=== PATIENT | female | born 1960 | race Caucasian/White ===

== ENCOUNTER → 2016-07-02 | Outpatient (CLI) | payer MEDICAID ==
[~2016-07-02] MED LIST: CELEXA40 M1 PO; IMODIUM 2MG. CAP2 MG PO; NEURONTIN800 MG PO; VALIUM 10MG TAB10 MG PO
--- NOTE | 2016-07-02 23:33 | RADIOLOGY REPORT PS360 ---
THORACIC SPINE AP LAT-2VIEW Ordering Physician: Jose L Santiago MD Patient Age: 56 years: Female HISTORY: HIP AND BACK PAIN TECHNIQUE: AP lateral swimmer's view thoracic spine. FINDINGS Thoracic vertebral bodies appear intact. No compression fractures of thoracic spine. There is mild dextro scoliosis at the lower thoracic spine. This character Associated with some mild disc space narrowing to the left at at T8/9 & T9-10 . Early marginal osteophytes the left T10 days 10. No paraspinal mass. Posterior ribs intact. Mild/moderate degenerative arthritic changes lower C-spine and cervical spondylosis-. These features and T-spine Similar to [address] with no significant new findings today. Wedge compression fracture superior L1 IMPRESSION: Thoracic spine intact with no fracture nor subluxation of the T-spine. ] We do see the compression fracture at L1, as discussed in subsequent lumbar radiograph report
--- NOTE | 2016-07-03 00:04 | RADIOLOGY REPORT PS360 ---
LUMBAR SPINE 5 VIEWS Ordering Physician: Jose L Santiago MD Patient Age: 56 years: Female HISTORY: HIP AND BACK PAIN TECHNIQUE: Five-view lumbar spine series COMPARISONThere is a February 2015 MRI used as comparison along with a CT chest from September 2015 FINDINGS . 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 Small rudimentary Rib on the left with a a small transverse process structure to the right and designated T12. . Using above numbering system there is a Prominent wedge compression fracture designated L1. This mainly involves superior endplate... Slight posterior hypertrophic ridging and T12/L1 likely slightly narrow spinal canal this level. This this fracture occurred since September 2015 CT chest Today Nearly 50% loss of height anteriorly at compressed L1 .. Slightly greater loss of height centrally L1 due to the the concave compressed superior endplate. Sclerotic changes beneath this. There is a February 2015 MRI used as comparison along with a CT chest from September 2015. There is a abnormal signal involving much of L1 vertebra body. This appears to be benign hemangioma on prior MRI of due to the increased fat signal on T1-weighted images. Also note typical vertical striated compatible with hemangioma as seen on a CT from September 2015 at designated L1 .. . Remainder L-spine unremarkable. Facets satisfactory. Only note Borderline disc space displaced on L4/5 L5/S1 on other views note: This study was dictated with a voice-recognition system. There may be typographical error is related to such. 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 There may be some mild posterior ridging at T12/L1 slightly narrowing the spinal canal at this level.. Consider MRI Pre and Postcontrast further evaluate. Additional note: Previous studies showed underlying extensive hemangioma of L1 ( as suggested on prior MRI from Feb [address] chest.)
--- NOTE | 2016-07-03 00:04 | RADIOLOGY REPORT PS360 ---
PELVIS AP ONLY Ordering Physician: Jose L Santiago MD Patient Age: 56 years: Female HISTORY: HIP AND BACK PAIN TECHNIQUE: AP osseous pelvis radiograph FINDINGS Osseous pelvis is intact no fracture. No lesion. AP view of hips show hydronephrosis be fairly well-maintained bilaterally. Femoral head normal density and contour bilaterally. Phleboliths seen at left pelvic basin. IMPRESSION: Osseous pelvis intact. AP view of hips unremarkable
== END ==
LOC: RAD 11:02
DX: M54.6 Pain in thoracic spine (principal); M54.5 Low back pain; R10.2 Pelvic and perineal pain; M25.559 Pain in unspecified hip

== ENCOUNTER → 2016-09-24 | Outpatient (CLI) | payer MEDICAID ==
[2016-09-24 16:38] LABS: AMPHETAMINES/METAMPHETAMINES NEGATIVE ng/mL (<1000)
== END ==
LOC: LAB 15:45
PROVIDERS: Emergency Medicine
DX: Z79.899 Other long term (current) drug therapy (principal)

== ENCOUNTER → 2016-10-23 | Outpatient (CLI) | payer MEDICAID ==
[2016-10-23 14:53] LABS: AMPHETAMINES/METAMPHETAMINES NEGATIVE ng/mL (<1000)
== END ==
LOC: LAB 13:09
PROVIDERS: Emergency Medicine
DX: Z79.899 Other long term (current) drug therapy (principal)

== ENCOUNTER → 2016-11-20 | Outpatient (CLI) | payer MEDICAID ==
[2016-11-20 14:13] LABS: AMPHETAMINES/METAMPHETAMINES NEGATIVE ng/mL (<1000)
== END ==
LOC: LAB 13:13
PROVIDERS: Emergency Medicine
DX: Z79.899 Other long term (current) drug therapy (principal)

== ENCOUNTER → 2017-01-15 | Outpatient (CLI) | payer MEDICAID ==
[2017-01-15 17:14] LABS: AMPHETAMINES/METAMPHETAMINES POSITIVE ng/mL (<1000)
== END ==
LOC: LAB 16:38
PROVIDERS: Emergency Medicine
DX: Z79.899 Other long term (current) drug therapy (principal)